=== PATIENT | male | born 1960 | race American Indian/Alaskan Native ===

== ENCOUNTER 2016-07-29 12:10 | Outpatient (CLI) | payer OTHER ==
[2016-07-29] MEDS ORDERED: PROVENTIL IH ONE (12:15)
== END 2016-07-29 12:11 | disposition home or self-care (01) ==
LOC: PF 12:10
PROVIDERS: ATTEND Internal Medicine
DX: J44.9 Chronic obstructive pulmonary disease, unspecified (principal); J45.909 Unspecified asthma, uncomplicated; J96.91 Respiratory failure, unspecified with hypoxia
CPT/HCPCS: 94060; 94640

== ENCOUNTER 2016-12-20 08:43 | Emergency (ER) | payer SELFPAY ==
[2016-12-20 09:35] LABS: Basophils % (Auto) 0.4 % (0.0-1.8); Eosinophils % (Auto) 10.3 % (0.0-4.3); Mean Corpuscular HGB Conc 33 % (32-34); Mean Corpuscular Hemoglobin 30 pg (28-32); Mean Corpuscular Volume 92 fl (84-94); Platelet Count 192 K/mm3 (140-440); Red Blood Count 5.35 M/mm3 (3.65-5.03); Red Cell Distribution Width 14.6 % (13.2-15.2); White Blood Count 4.6 K/mm3 (4.5-11.0)
--- NOTE | 2016-12-20 09:40 | XRay Report ---
Chest 2 views: History: Shortness of breath. Findings: Normal cardiomediastinal silhouette. Trachea is midline. Evidence of COPD. No acute consolidation or pleural effusion. Impression: COPD. No acute lung changes.
[2016-12-20 09:45] LABS: Anion Gap 15 mmol/L; Blood Urea Nitrogen 9 mg/dL (9-20); Calcium 9.3 mg/dL (8.4-10.2); Carbon Dioxide 35 mmol/L (22-30); Chloride 95.8 mmol/L (98-107); Glucose 101 mg/dL (75-100); Potassium 3.8 mmol/L (3.6-5.0); Sodium 142 mmol/L (137-145)
--- NOTE | 2016-12-20 10:20 | Emergency Department Report ---
ED General Adult HPI - General Chief complaint: Dyspnea/Respdistress Stated complaint: MAC Time Seen by Provider: 12/20/16 10:19 Source: patient, RN notes reviewed, old records reviewed Mode of arrival: Ambulatory Limitations: No Limitations - History of Present Illness Initial comments: This is a 56-year-old male. He is previously unknown to me. His primary care doctor is Dr. Lam. His recreation instructor is at [place], and he has a follow-up appointment January 22. He reports a past medical history of COPD, and is not home oxygen dependent, but has home oxygen for as needed events. The patient presents to the ER complaining of shortness of breath, chest tightness for the past 3 weeks. He reports nonproductive cough. There is no leg pain. There is no leg swelling. No recent trips greater than 4 hours. No recent hospital admissions. The patient denies hematemesis and hemoptysis, denies bright red blood per rectum. He is using his albuterol inhaler at home every so often with minimal improvement in symptoms. His symptoms typically improve when he has a bowel movement. There is currently no abdominal pain. There are no irritative or obstructive urinary symptoms. -: Gradual, week(s) Location: chest Associated Symptoms: cough, shortness of breath - Related Data Previous Rx's Medication Instructions Recorded Last Taken Type Albuterol Sulfate [Albuterol 0.63% 0.63 mg IH Q4HR PRN #2 ml 12/20/16 Unknown Rx NEBS] Albuterol Sulfate [Proair 90 mcg IH Q4HR PRN #2 aer.pow.ba 12/20/16 Unknown Rx Respiclick] Ipratropium [place] [Atrovent Hfa] 12.9 gm IH Q4HR #2 hfa.aer.ad 12/20/16 Unknown Rx Ipratropium [Atrovent NEB] 0.5 mg IH Q4HR #2 ml 12/20/16 Unknown Rx predniSONE [Deltasone] 40 mg PO QDAY #8 tab 12/20/16 Unknown Rx Allergies Allergy/AdvReac Type Severity Reaction Status Date / Time No Known Allergies Allergy Unverified 07/29/16 12:10 ED Review of Systems ROS: Stated complaint: MAC Other details as noted in HPI Constitutional: denies: fever, malaise Eyes: denies: vision change ENT: denies: epistaxis Respiratory: shortness of breath, SOB at rest, wheezing Cardiovascular: dyspnea on exertion Gastrointestinal: denies: nausea, vomiting Genitourinary: as per HPI Musculoskeletal: denies: arthralgia, myalgia Skin: denies: lesions Neurological: denies: headache Psychiatric: as per HPI ED Past Medical Hx - Past Medical History Previous Medical History?: Yes Hx Hypertension: Yes Hx Asthma: Yes Hx COPD: Yes - Surgical History Past Surgical History?: No - Social History Smoking Status: Former Smoker - Medications Home Medications: Home Medications Medication Instructions Recorded Confirmed Last Taken Type Albuterol Sulfate [Albuterol 0.63% 0.63 mg IH Q4HR PRN #2 ml 12/20/16 Unknown Rx NEBS] Albuterol Sulfate [Proair 90 mcg IH Q4HR PRN #2 aer.pow.ba 12/20/16 Unknown Rx Respiclick] Ipratropium [place] [Atrovent Hfa] 12.9 gm IH Q4HR #2 hfa.aer.ad 12/20/16 Unknown Rx Ipratropium [Atrovent NEB] 0.5 mg IH Q4HR #2 ml 12/20/16 Unknown Rx predniSONE [Deltasone] 40 mg PO QDAY #8 tab 12/20/16 Unknown Rx ED Physical Exam - General Limitations: No Limitations General appearance: alert, in no apparent distress - Head Head exam: Present: atraumatic, normocephalic - Eye Eye exam: Present: normal appearance, EOMI. Absent: nystagmus - ENT ENT exam: Present: normal exam, normal orophraynx, mucous membranes moist, normal external ear exam - Neck Neck exam: Present: normal inspection, full ROM. Absent: tenderness, meningismus - Respiratory Respiratory exam: Present: normal lung sounds bilaterally, rhonchi (very faint rhonchi are appreciated in the left lower hemithorax pretreatment). Absent: respiratory distress, wheezes, rales, stridor, chest wall tenderness, accessory muscle use, decreased breath sounds, prolonged expiratory - Cardiovascular Cardiovascular Exam: Present: regular rate, normal rhythm, normal heart sounds. Absent: bradycardia, tachycardia, irregular rhythm, systolic murmur, diastolic murmur, rubs, gallop - GI/Abdominal GI/Abdominal exam: Present: soft, normal bowel sounds. Absent: distended, tenderness, guarding, rebound, rigid, pulsatile mass - Rectal Rectal exam: Present: deferred - Extremities Exam Extremities exam: Present: normal inspection, full ROM, normal capillary refill. Absent: pedal edema, joint swelling, calf tenderness - Back Exam Back exam: Present: normal inspection, full ROM. Absent: tenderness, CVA tenderness (R), CVA tenderness (L), muscle spasm, paraspinal tenderness, vertebral tenderness - Neurological Exam Neurological exam: Present: alert, oriented X3, normal gait, other (Extraocular movements intact. Tongue midline. No facial droop. Facial sensation intact to light touch in the V1, V2, V3 distribution bilaterally. 5 and 5 strength in 4 extremities.. Sensation is intact to light touch in 4 extremities.). Absent : motor sensory deficit - Psychiatric Psychiatric exam: Present: normal affect, normal mood - Skin Skin exam: Present: warm, dry, intact, normal color. Absent: rash ED Course Vital Signs 12/20/16 12/20/16 12/20/16 09:02 09:45 10:24 Temperature 98.6 F Pulse Rate 76 80 Pulse Rate [ Throughout] Respiratory 16 16 16 Rate Respiratory Rate [ Throughout] Blood Pressure 125/87 Blood Pressure 118/92 [Left] O2 Sat by Pulse 100 94 94 Oximetry 12/20/16 12/20/16 12/20/16 10:51 11:20 12:39 Temperature Pulse Rate 76 Pulse Rate [ 84 86 Throughout] Respiratory 16 Rate Respiratory 18 18 Rate [ Throughout] Blood Pressure Blood Pressure 128/76 [Left] O2 Sat by Pulse 99 Oximetry ED Medical Decision Making - Lab Data Result diagrams: 12/20/16 09:10 12/20/16 09:10 Vital Signs 12/20/16 12/20/16 12/20/16 09:02 09:45 10:24 Temperature 98.6 F Pulse Rate 76 80 Pulse Rate [ Throughout] Respiratory 16 16 16 Rate Respiratory Rate [ Throughout] Blood Pressure 125/87 Blood Pressure 118/92 [Left] O2 Sat by Pulse 100 94 94 Oximetry 12/20/16 12/20/16 10:51 11:20 Temperature Pulse Rate Pulse Rate [ 84 86 Throughout] Respiratory Rate Respiratory 18 18 Rate [ Throughout] Blood Pressure Blood Pressure [Left] O2 Sat by Pulse Oximetry Lab Results 12/20/16 12/20/16 Range/Units 09:10 09:10 WBC 4.6 (4.5-11.0) K/mm3 RBC 5.35 H (3.65-5.03) M/mm3 Hgb 16.0 H (11.8-15.2) gm/dl Hct 49.0 H (35.5-45.6) % MCV 92 (84-94) fl MCH 30 (28-32) pg MCHC 33 (32-34) % RDW 14.6 (13.2-15.2) % Plt Count 192 (140-440) K/mm3 Lymph % (Auto) 31.1 (13.4-35.0) % Kimble % (Auto) 10.2 H (0.0-7.3) % Eos % (Auto) 10.3 H (0.0-4.3) % Baso % (Auto) 0.4 (0.0-1.8) % Lymph # 1.4 (1.2-5.4) K/mm3 Kimble # 0.5 (0.0-0.8) K/mm3 Eos # 0.5 H (0.0-0.4) K/mm3 Baso # 0.0 (0.0-0.1) K/mm3 Seg Neutrophils % 48.0 (40.0-70.0) % Seg Neutrophils # 2.2 (1.8-7.7) K/mm3 Sodium 142 (137-145) mmol/L Potassium 3.8 (3.6-5.0) mmol/L Chloride 95.8 L (98-107) mmol/L Carbon Dioxide 35 H (22-30) mmol/L Anion Gap 15 mmol/L BUN 9 (9-20) mg/dL Creatinine 1.0 (0.8-1.5) mg/dL Estimated GFR > 60 ml/min BUN/Creatinine Ratio 9.00 % Glucose 101 H (75-100) mg/dL Calcium 9.3 (8.4-10.2) mg/dL Troponin T < 0.010 (0.00-0.029) ng/mL - EKG Data -: EKG Interpreted by Nm EKG shows normal: sinus rhythm Rate: normal - EKG Data When compared to previous EKG there are: previous EKG unavailable 12/20/16 11:33 Normal sinus, 68 bpm, borderline rightward axis, poor R-wave progression, abnormal EKG, not morphologically consistent with STEMI, there is no prior for comparison. - Radiology Data Radiology results: report reviewed, image reviewed X-ray the chest , COPD, no acute findings - Medical Decision Making Differential diagnosis: Pneumonia, bronchitis, COPD, acute coronary syndrome Assessment and plan: 56-year-old male with 3 weeks of cough, chest tightness. He is afebrile, with reassuring vital signs. There are no pulmonary embolus or DVT risk factors, he is low risk by well's criteria, he is low risk by VARUN score, and he is low risk by heart score. His chest discomfort does not radiate to the back, arms and neck, there is no diaphoresis, and his symptoms have been going on for 3 weeks. I appreciated his abnormal EKG, patient has one negative troponin, however given 3 weeks of symptoms, I think acute coronary syndrome is unlikely. He is treated empirically with albuterol, Atrovent, steroids and magnesium, reports dramatic improvement in his symptoms, and his pain rhonchi have improved. The patient is suitable follow-up and outpatient primary care doctor administration specialist, and he is instructed to follow-up with either outpatient primary care or cardiology for his incidental abnormal EKG. Return precautions are reviewed, the patient is able to cannulate without desaturation Critical care attestation.: If time is entered above; I have spent that time in minutes in the direct care of this critically ill patient, excluding procedure time. ED Disposition Clinical Impression: COPD (chronic obstructive pulmonary disease) Disposition: DC-01 TO HOME OR SELFCARE Is pt being admited?: No Does the pt Need Aspirin: No Condition: Stable Instructions: Chronic Obstructive Pulmonary Disease (ED) Additional Instructions: Use the albuterol and Atrovent every 4 hours for the next 4-5 days. Follow up with either a primary care doctor or oil well gun perforator operator within the next week for your EKG which was incidentally abnormal. Dr. Quinn is a local data processing specialist. Return to the ER right away with new pain, worsened pain, migration of pain, fevers, chills, confusion, change in mental status, projectile vomiting, inability to tolerate liquid feeds. Prescriptions: Albuterol Sulfate [Albuterol 0.63% NEBS] 0.63 mg IH Q4HR PRN #2 ml PRN Reason: Wheezing Albuterol Sulfate [Proair Respiclick] 90 mcg IH Q4HR PRN #2 aer.pow.ba PRN Reason: Wheezing Ipratropium [Atrovent NEB] 0.5 mg IH Q4HR #2 ml Ipratropium [place] [Atrovent Hfa] 12.9 gm IH Q4HR #2 hfa.aer.ad predniSONE [Deltasone] 40 mg PO QDAY #8 tab Referrals: PRIMARY CARE, [Primary Care Provider] - 3-5 Days RODRIGO LAM MD [Referring] - 3-5 Days CITLALY OJEDA MD [Staff Physician] - 3-5 Days JOMAR QUINN MD [Staff Physician] - 3-5 Days
[2016-12-20] MEDS ORDERED: MAGNESIUM SULFATE 2GM/50ML 2 GM/50 ML BAG IV ONE (10:27)
[2016-12-20] MEDS ORDERED: ATROVENT IH ONE (10:27)
[2016-12-20] MEDS ORDERED: PROVENTIL IH ONE (10:27)
[2016-12-20 12:40] VITALS: BP 128/76
== END 2016-12-20 12:58 | disposition home or self-care (01) ==
LOC: ED 08:43
DX: J44.9 Chronic obstructive pulmonary disease, unspecified (principal); I10 Essential (primary) hypertension; Z87.891 Personal history of nicotine dependence; J45.909 Unspecified asthma, uncomplicated
CPT/HCPCS: 36415; 71020; 80048; 84484; 85025; 93005; 93010; 94640; 96365; 96375; 99284; J2930; J3475